=== PATIENT | male | born 1985 | race Two or more races ===

== ENCOUNTER 2022-12-14 15:59 | Emergency (ER) | payer MEDICAID ==
[~2022-12-14] VITALS: Ht 180.3 cm; Wt 81.8 kg
[2022-12-14] MEDS ORDERED: ACETAMINOPHEN 500 MG TABLET PO ONE (16:15)
[2022-12-14 20:30] VITALS: BP 124/73
== END 2022-12-14 20:40 | disposition home or self-care (01) ==
LOC: EMS 16:06
DX: S09.90XA Unspecified injury of head, initial encounter (principal); F17.210 Nicotine dependence, cigarettes, uncomplicated; W19.XXXA Unspecified fall, initial encounter; Y93.89 Activity, other specified; Y92.89 Other specified places as the place of occurrence of the external cause; Y99.8 Other external cause status
CPT/HCPCS: 70450; 99285